=== PATIENT | female | born 1980 | race Caucasian/White ===

== ENCOUNTER → 2018-01-17 | Outpatient (CLI) | payer OTHER ==
[~2018-01-17] MED LIST: IBUPROFEN 800800 MG PO; MAXZIDE-25 MG1 EACH PO; NORCO 5-325 TA1 EACH PO
== END ==
LOC: M.ULTRA 12:56
DX: N83.202 Unspecified ovarian cyst, left side (principal); N83.201 Unspecified ovarian cyst, right side

== ENCOUNTER → 2018-06-03 | Outpatient (CLI) | payer OTHER ==
[2018-06-03 13:07] LABS: CREATININE 0.8 mg/dL (0.6-1.3); POTASSIUM 3.9 mmol/L (3.5-5.1)
--- NOTE | 2018-06-03 14:48 | 2DMMODE ---
[place] [address] 2 D/M-MODE ECHOCARDIOGRAM Name: SALVADOR CHAUDHARY Room: [facility]#: [id number] Admission: 06/03/18 Attend Phys: Emanuel Turner, Discharge: Date of : 82 Date of Service: 06/03/18 1447 Report #: [id number] THIS REPORT FOR: //name// APPROVED REPORT Study performed: 06/03/2018 13:06:28 EXAM: Comprehensive 2D, Doppler, and color-flow Echocardiogram Patient Location: Out-Patient Status: routine BSA: 1.83 HR: 74 bpm BP: 115/78 mmHg Other Information Study Quality: Good Indications Aortic Valve Disease Bicuspid Aortic Valve 2D Dimensions LVEF(%): 62.05 (>50%) IVSd: 8.23 (7-11mm) LVOT Diam: 20.58 (18-24mm) LVDd: 45.33 mm PWd: 8.35 (7-11mm) Ascending Ao: 29.27 (22-36mm) LVDs: 30.24 (25-40mm) Aortic Root: 23.53 mm Quintanilla's LVEF: 62.05 % Volumes Left Atrial Volume (Systole) LA ESV Index: 13.00 mL/m2 Aortic Valve AoV Peak Alberto.: 2.10 m/s AO Peak Gr.: 17.57 mmHg LVOT Max P.18 mmHg AO Mean Gr.: 11.31 mmHg LVOT Mean P.55 mmHg LVOT Max V: 0.89 m/s AO V2 VTI: 47.62 cm LVOT Mean V: 0.57 m/s ERASMO (VTI): 1.46 cm2 LVOT V1 VTI: 20.89 cm AI Chaves: 1.94 m/s2 AI PHT: 530.33 [place] [address] 2 D/M-MODE ECHOCARDIOGRAM Name: SALVADOR CHAUDHARY Room: [facility]#: [id number] Admission: 06/03/18 Attend Phys: Emanuel Turner, Discharge: Date of : 82 Date of Service: 06/03/18 1447 Report #: [id number] Mitral Valve E/A Ratio: 1.32 MV Decel. Time: 149.18 ms MV E Max Alberto.: 0.88 m/s MV PHT: 43.26 ms MVA (PHT): 5.09 cm2 TDI E/Lateral E': 5.50 E/Medial E': 8.00 Medial E' Alberto.: 0.11 m/s Lateral E' Alberto.: 0.16 m/s Pulmonary Valve PV Peak Alberto.: 0.81 m/s PV Peak Gr.: 2.64 mmHg Tricuspid Valve RAP Estimate: 5.00 mmHg TR Peak Gr.: 23.90 mmHg RVSP: 28.90 mmHg PA Pressure: 28.90 mmHg Left Ventricle The left ventricle is normal size. There is normal LV segmental wall motion. There is normal left ventricular wall thickness. Left ventricular systolic function is normal. The left ventricular ejection fraction is within the normal range. LVEF is 55-60%. The left ventricular diastolic function is normal. Right Ventricle The right ventricle is normal size. The right ventricular systolic function is normal. Atria The left atrium size is normal. The right atrium size is normal. Aortic Valve Aortic valve leaflets are mildly thickened. Moderate aortic regurgitation. There is no aortic valvular stenosis. Mitral Valve The mitral valve is normal in structure. There is no mitral valve regurgitation noted. No evidence of mitral valve stenosis. Tricuspid Valve The tricuspid valve is normal in structure. Mild [place] [address] 2 D/M-MODE ECHOCARDIOGRAM Name: SALVAODR CHAUDHARY Room: [facility]#: [id number] Admission: 06/03/18 Attend Phys: Emanuel Turner, Discharge: Date of : 82 Date of Service: 06/03/18 1447 Report #: [id number] Pulmonic Valve The pulmonary valve is normal in structure. There is no pulmonic valvular regurgitation. Great Vessels The aortic root is normal in size. IVC is normal in size and collapses with >50% inspiration Pericardium There is no pericardial effusion. <Conclusion> The left ventricle is normal size. There is normal left ventricular wall thickness. Left ventricular systolic function is normal. The left ventricular ejection fraction is within the normal range. LVEF is 55-60%. The left ventricular diastolic function is normal. The right ventricle is normal size. The left atrium size is normal. Aortic valve leaflets are mildly thickened. Moderate aortic regurgitation. There is no aortic valvular stenosis. The mitral valve is normal in structure. The tricuspid valve is normal in structure. IVC is normal in size and collapses with >50% inspiration There is no pericardial effusion. There is normal LV segmental wall motion. <ELECTRONICALLY SIGNED> By: Nathan Mccrary MD, FACC 06/03/18 1447 1447 1447 Nathan Mccrary MD, FACC /INF
== END ==
LOC: M.CRD 12:37
PROVIDERS: Internal Medicine Cardiovascular Disease
DX: I08.2 Rheumatic disorders of both aortic and tricuspid valves (principal); I50.31 Acute diastolic (congestive) heart failure

== ENCOUNTER 2018-06-22 08:44 | Emergency (ER) | payer OTHER ==
[~2018-06-22] VITALS: Ht 162.6 cm; Wt 77.1 kg
[2018-06-22] MEDS ORDERED: MAXZIDE-25 MG1 EACH PO (08:54)
[2018-06-22] MEDS ORDERED: NORCO 5-325 TA1 EACH PO (10:32)
[2018-06-22] MEDS ORDERED: IBUPROFEN 800800 MG PO (10:32)
[2018-06-22 10:43] VITALS: BP 95/63
== END 2018-06-22 10:44 | disposition home or self-care (01) ==
LOC: M.ERS 08:44
DX: S52.592A Other fractures of lower end of left radius, initial encounter for closed fracture (principal); S52.612A Displaced fracture of left ulna styloid process, initial encounter for closed fracture; W55.12XA Struck by horse, initial encounter; Y93.89 Activity, other specified; Y92.89 Other specified places as the place of occurrence of the external cause; Y99.8 Other external cause status

== ENCOUNTER → 2018-12-11 | Outpatient (CLI) | payer OTHER ==
--- NOTE | 2018-12-11 15:44 | EXE ---
[place] [address] STRESS ECHOCARDIOGRAM Name: SALVADOR CHAUDHARY Room: [facility]#: [id number] Admission: 12/11/18 Attend Phys: Emanuel Turner, Discharge: Date of : 82 Date of Service: 12/11/18 1543 Report #: [id number] THIS REPORT FOR: //name// APPROVED REPORT Study performed: 12/11/2018 11:03:09 Exam: Stress Echocardiogram Indication: Chest pain Patient Location: Out-Patient Stress Nurse: Fiona Hussein RN Supervising Physician: Nathan Mccrary MD Ht: 5 ft 5 in HR: 72 bpm BP: 98/66 mmHg Procedure The patient underwent an Exercise Stress Test using the Keon Protocol. Blood pressure, heart rate, and EKG were monitored. An Echocardiogram was performed by watch technician in four stages in quad fashion. At peak stress, four selected images were obtained and placed side by side with resting images for comparison. Stress Test Details Stress Test: Exercise stress testing was performed using a Keon protocol. HR Resting HR: 72 bpm Max Heart Rate (APMHR): 183 bpm Max HR Achieved: 176 bpm Target HR (85% APMHR): 155 bpm % of APMHR: 96 Recovery HR: 99 bpm HR response to stress: Normal HR response to stress BP Resting BP: 98/66 mmHg Max BP: 152/83 mmHg Recovery BP: 113/79 mmHg BP response to stress: Normal blood pressure response to stress. ECG Resting ECG: Normal EKG Stress ECG: No ischemic st-t changes Clinical Reason for Termination: [place] [address] STRESS ECHOCARDIOGRAM Name: SALVADOR CHAUDHARY Room: [facility]#: [id number] Admission: 12/11/18 Attend Phys: Emanuel Turner, Discharge: Date of : 82 Date of Service: 12/11/18 1543 Report #: [id number] Exercise duration: 9 min 35 sec Highest Stage Achieved: Stage 4: 4.2 mph at 16% grade. Exercise capacity: 11.11 METs Pre-Stress Echo The resting Echocardiogram showed normal left ventricular contractility with an estimated Ejection Fraction of about 55-60%. Normal wall motion in all segments on baseline images. Post-Stress Echo The stress Echocardiogram showed normal left ventricular contractility with an estimated Ejection Fraction of about >70%. Normal augmentation of wall motion in all segments on post stress images. Conclusion Clinical Response: Non-ischemic Exercise Capacity: Average Stress ECG Response: Non-ischemic Stress Echo Images: Non-ischemic Other Information Study Quality: Good <ELECTRONICALLY SIGNED> By: Nathan Mccrary MD, [facility] 12/11/18 1543 1543 154 Nathan Mccrary MD, FACC /INF
== END ==
LOC: M.CRD 10:41
DX: I20.8 Other forms of angina pectoris (principal)

== ENCOUNTER → 2020-12-15 | Outpatient (CLI) | payer OTHER ==
--- NOTE | 2020-12-15 16:39 | 2DMMODE ---
[place] [address] 2 D/M-MODE ECHOCARDIOGRAM Name: SALVADOR CHAUDHARY Room: [facility]#: [id number] Admission: 12/15/20 Attend Phys: Alfonzo Elkins, Discharge: Date of : 82 Date of Service: 12/15/20 1639 Report #: [id number] THIS REPORT FOR: cc: Isabelle Salcido MD, Tuongvan T. MD Holkins, John M. MD [facility] ~ APPROVED REPORT Study performed: 12/15/2020 13:55:36 EXAM: Comprehensive 2D, Doppler, and color-flow Echocardiogram Patient Location: Out-Patient BSA: 1.90 HR: 93 bpm BP: 120/70 mmHg Other Information Study Quality: Good Indications Bicuspid Aortic valve 2D Dimensions IVSd: 10.48 (7-11mm) LVOT Diam: 21.03 (18-24mm) LVDd: 44.62 mm PWd: 9.23 (7-11mm) Ascending Ao: 33.15 (22-36mm) LVDs: 23.59 (25-40mm) Aortic Root: 28.92 mm Volumes Left Atrial Volume (Systole) LA ESV Index: 15.50 mL/m2 Aortic Valve AoV Peak Alberto.: 2.26 m/s AO Peak Gr.: 20.45 mmHg LVOT Max P.25 mmHg AO Mean Gr.: 12.50 mmHg LVOT Mean P.57 mmHg LVOT Max V: 0.90 m/s AO V2 VTI: 45.69 cm LVOT Mean V: 0.58 m/s ERASMO (VTI): 1.46 cm2 LVOT V1 VTI: 19.28 cm AI Hale: 2.57 m/s2 AI PHT: 414.21 [place] [address] 2 D/M-MODE ECHOCARDIOGRAM Name: SALVADOR CHAUDHARY Room: [facility]#: [id number] Admission: 12/15/20 Attend Phys: Alfonzo Elkins, Discharge: Date of : 82 Date of Service: 12/15/20 1639 Report #: [id number] Mitral Valve E/A Ratio: 1.15 MV Decel. Time: 186.47 ms MV E Max Alberto.: 0.73 m/s MV PHT: 54.08 ms MVA (PHT): 4.07 cm2 TDI E/Lateral E': 4.56 E/Medial E': 8.11 Medial E' Alberto.: 0.09 m/s Lateral E' Alberto.: 0.16 m/s Pulmonary Valve PV Peak Alberto.: 0.89 m/s PV Peak Gr.: 3.14 mmHg Tricuspid Valve RAP Estimate: 5.00 mmHg TR Peak Gr.: 22.26 mmHg RVSP: 27.26 mmHg PA Pressure: 27.26 mmHg Left Ventricle The left ventricle is normal size. There is normal LV segmental wall motion. There is normal left ventricular wall thickness. Left ventricular systolic function is normal. The left ventricular ejection fraction is within the normal range. LVEF is 55-60%. The left ventricular diastolic function is normal. Right Ventricle The right ventricle is normal size. The right ventricular systolic function is normal. Atria The left atrium size is normal. The right atrium size is normal. Aortic Valve Aortic valve is possibly bicuspid. Mild aortic valve sclerosis. Mild to moderate aortic regurgitation. Mild aortic stenosis. Mitral Valve The mitral valve is normal in structure. There is no mitral valve regurgitation noted. No evidence of mitral valve stenosis. Tricuspid Valve The tricuspid valve is normal in structure. [place] [address] 2 D/M-MODE ECHOCARDIOGRAM Name: SALVADOR CHAUDHARY Room: [facility]#: [id number] Admission: 12/15/20 Attend Phys: Alfonzo Elkins, Discharge: Date of : 82 Date of Service: 12/15/20 1639 Report #: [id number] Pulmonic Valve The pulmonary valve is normal in structure. There is no pulmonic valvular regurgitation. Great Vessels The aortic root is normal in size. IVC is normal in size and collapses >50% with inspiration. Pericardium There is no pericardial effusion. <Conclusion> The left ventricle is normal size. There is normal left ventricular wall thickness. Left ventricular systolic function is normal. The left ventricular ejection fraction is within the normal range. LVEF is 55-60%. The left ventricular diastolic function is normal. The right ventricle is normal size. The left atrium size is normal. Aortic valve is possibly bicuspid. Mild aortic valve sclerosis. Mild to moderate aortic regurgitation. Mild aortic stenosis. The mitral valve is normal in structure. The tricuspid valve is normal in structure. IVC is normal in size and collapses >50% with inspiration. There is no pericardial effusion. There is normal LV segmental wall motion. <ELECTRONICALLY SIGNED> By: Nathan Mccrary MD, FACC 12/15/20 1639 38 38 Nathan Mccrary MD, FACC /INF
== END ==
LOC: M.CRD 12-13 14:00
PROVIDERS: ATTEND Internal Medicine Cardiovascular Disease
DX: I08.2 Rheumatic disorders of both aortic and tricuspid valves (principal); Q23.1 Congenital insufficiency of aortic valve

== ENCOUNTER → 2021-02-07 | Outpatient (CLI) | payer OTHER | LOC: M.CT 15:48 | PROVIDERS: ATTEND Internal Medicine Cardiovascular Disease | DX: I71.9 Aortic aneurysm of unspecified site, without rupture (principal) ==

== ENCOUNTER 2021-05-22 09:16 | Inpatient (IN) | payer OTHER ==
[~2021-05-22] VITALS: Ht 162.6 cm; Wt 87.5 kg
[2021-05-22 09:32] VITALS: BP 107/70
[2021-05-22] MEDS ORDERED: [UNRECOGNIZED DRUG - OTHER] (09:34)
[2021-05-22 10:38] LABS: ABSOLUTE BASOPHILS 0.1 thou/uL (0.0-0.2); ABSOLUTE MONOCYTES 0.3 thou/uL (0.0-1.2); ABSOLUTE NEUTROPHILS 6.1 thou/uL (1.6-8.1); EOSINOPHILS 0.1 %; HEMATOCRIT 40.9 % (37.0-47.0); HEMOGLOBIN 13.7 gm/dL (12.0-15.0); LYMPHOCYTES 13.5 %; MCH 29.2 pg (26.0-34.0); MCHC 33.4 g/dL (28.0-37.0); MCV 87.4 fL (80.0-100.0); MONOCYTES 4.3 %; MPV 7.1 fl. (7.2-11.1); NUCLEATED RBCS 0 /100WBC; PLATELET COUNT* 301 thou/uL (150-400); POLYS 81.1 %; RBC 4.68 mil/uL (4.20-5.00); RDW-CV 13.5 % (10.5-14.5); WBC 7.6 thou/uL (4.0-11.0)
--- NOTE | 2021-05-22 10:52 | EKG ---
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: [facility] : 1980 Requested By: Mikel Truong Order Number: [id number] MD: Danilo Casillas Measurements Intervals [place] Rate: 100 P: 61 AL: 136 QRS: 39 QRSD: 84 T: 83 QT: 332 QTc: 429 Interpretive Statements Sinus tachycardia Borderline repolarization abnormality No previous ECG available for comparison Electronically Signed On 05-22-2021 10:52:12 CDT by Danilo Casillas [email or web address] <ELECTRONICALLY SIGNED> By: Pedro Casillas MD, [facility] 05/22/21 1052 1023 1023 Pedro Casillas MD, FACC /EPI
[2021-05-22 10:58] LABS: CALCIUM 7.8 mg/dL (8.5-10.1); CREATININE 0.8 mg/dL (0.6-1.3); POTASSIUM 3.7 mmol/L (3.5-5.1)
[2021-05-22 11:03] LABS: ALBUMIN 2.4 g/dL (3.4-5.0); TOTAL BILIRUBIN 0.3 mg/dL (<0.1-1.0); TOTAL PROTEIN 6.3 g/dL (6.4-8.2)
[2021-05-22] MEDS ORDERED: DECADRON6 MG PO (12:30)
[2021-05-22] MEDS ORDERED: DORYX MPC120 MG PO (12:30)
[2021-05-22 14:21] LABS: ALBUMIN 2.3 g/dL (3.4-5.0); DIRECT BILIRUBIN 0.1 mg/dL (<0.1-0.3); TOTAL BILIRUBIN 0.2 mg/dL (<0.1-1.0); TOTAL PROTEIN 6.1 g/dL (6.4-8.2)
[2021-05-22 15:09] VITALS: BP 99/68
[2021-05-22 17:38] VITALS: BP 112/70
[2021-05-22 17:52] VITALS: BP 109/68
[2021-05-22 20:00] VITALS: BP 115/78
[2021-05-23 02:41] VITALS: BP 96/62
--- NOTE | 2021-05-23 03:59 | NUR ---
ASSUMED CARE OF PT AFTER REPORT AT 1930. PT A&OX4. VSS. PHYSICAL ASSESSMENT COMPLETED AND CHARTED. PT ON O2 AT 2LNC. PT TRACING SR ON TELE. PT UPADLIB TO BSC. PT COMPLAINED OF HEADACHE-MED GIVEN PER MAR. CALL LIGHT WITHIN REACH.
[2021-05-23 05:00] VITALS: BP 105/63
[2021-05-23 09:00] VITALS: BP 105/68
[2021-05-23] MEDS ORDERED: VENTOLIN HFA 1818 GM INH (11:50)
[2021-05-23] MEDS ORDERED: TESSALON PERLE100 MG PO (11:51)
[2021-05-23] MEDS ORDERED: PREDNISONE 10 M10 MG PO (11:53)
[2021-05-23] MEDS ORDERED: LEVOFLOXACIN500 MG PO (11:54)
--- NOTE | 2021-05-23 15:03 | NUR ---
Covid positive. Pt is A&O. Resides at home with and kids. Normally active and independe
[2021-05-23 20:00] VITALS: BP 110/73
[2021-05-24] VITALS: BP 103/61
[2021-05-24 04:00] VITALS: BP 107/63
--- NOTE | 2021-05-24 04:38 | NUR ---
ASSUMED CARE OF PT AFTER REPORT AT 1930. PT A&OX4. VSS. PHYSICAL ASSESSMENT COMPLETED AND CHARTED. PT ON O2 AT 2LNC. PT TRACING SR ON TELE. PT UPADLIB TO BSC. PT DENIES ANY PAIN. CALL LIGHT WITHIN REACH.
[2021-05-24 08:00] VITALS: BP 97/55
--- NOTE | 2021-05-24 09:12 | NUR ---
Pt to discharged today. Tank dispensed by Keny, TEJA took tank to unit for nurse to deliver into Pt's room. No further needs.
[2021-05-24 10:16] LABS: CALCIUM 8.3 mg/dL (8.5-10.1); CREATININE 0.7 mg/dL (0.6-1.3); POTASSIUM 3.6 mmol/L (3.5-5.1)
[2021-05-24 12:00] VITALS: BP 107/71
[2021-05-24 14:52] VITALS: BP 107/71
--- NOTE | 2021-05-24 16:34 | NUR ---
patient discharge to home accompanied by family . All discharge medication completed , left with portable oxygen tanks.No issue voiced at this time.
== END 2021-05-24 15:30 | disposition home or self-care (01) | DRG 177 ==
LOC: M.ERS 09:16 → M.ORTHSURG 11:46 → M.TBA-ER 11:46 → M.ORTHSURG 17:46
PROVIDERS: Emergency Medicine Emergency Medical Services; ADMIT Internal Medicine; ATTEND Internal Medicine
PROC: XW033E5 Introduction of Remdesivir Anti-infective into Peripheral Vein, Percutaneous Approach, New Technology Group 5 (ICD-10-PCS; principal; 2021-05-22)
PROC: 5A0935A Assistance with Respiratory Ventilation, Less than 24 Consecutive Hours, High Flow/Velocity Cannula (ICD-10-PCS; 2021-05-24)
DX: U07.1 COVID-19 (principal); J96.01 Acute respiratory failure with hypoxia; J12.82 Pneumonia due to coronavirus disease 2019; Z79.899 Other long term (current) drug therapy; Z87.891 Personal history of nicotine dependence; Z72.89 Other problems related to lifestyle

== ENCOUNTER 2021-10-29 09:30 | Emergency (ER) | payer OTHER ==
[~2021-10-29] VITALS: Ht 162.6 cm; Wt 77.1 kg
[~2021-10-29 09:30] MED LIST changes: +DECADRON6 MG PO; +DORYX MPC120 MG PO; +LEVOFLOXACIN500 MG PO; +PREDNISONE 10 M10 MG PO; +TESSALON PERLE100 MG PO; +VENTOLIN HFA 1818 GM INH; +[UNRECOGNIZED DRUG - OTHER]
[2021-10-29 09:56] LABS: ABSOLUTE BASOPHILS 0.1 thou/uL (0.0-0.2); ABSOLUTE EOSINOPHILS 0.1 thou/uL (0.0-0.7); ABSOLUTE LYMPHOCYTES 1.6 thou/uL (0.8-5.3); ABSOLUTE MONOCYTES 0.6 thou/uL (0.0-1.2); ABSOLUTE NEUTROPHILS 4.8 thou/uL (1.6-8.1); BASOPHILS 1.2 %; EOSINOPHILS 0.7 %; HEMATOCRIT 39.6 % (37.0-47.0); HEMOGLOBIN 13.5 gm/dL (12.0-15.0); LYMPHOCYTES 22.4 %; MCH 29.8 pg (26.0-34.0); MCHC 34.1 g/dL (28.0-37.0); MCV 87.3 fL (80.0-100.0); MONOCYTES 8.3 %; MPV 6.6 fl. (7.2-11.1); NUCLEATED RBCS 0 /100WBC; PLATELET COUNT* 394 thou/uL (150-400); POLYS 67.4 %; RBC 4.54 mil/uL (4.20-5.00); RDW-CV 13.6 % (10.5-14.5); WBC 7.1 thou/uL (4.0-11.0)
[2021-10-29 09:58] LABS: URINE BILIRUBIN NEGATIVE (Negative); URINE BLOOD 3+ (Negative); URINE CLARITY SL CLOUDY; URINE COLOR YELLOW; URINE GLUCOSE-RANDOM NEGATIVE (Negative); URINE KETONES NEGATIVE (Negative); URINE LEUKOCYTES-REFLEX NEGATIVE (Negative); URINE NITRITE-REFLEX NEGATIVE (Negative); URINE PROTEIN TRACE (Negative); URINE UROBILINOGEN 0.2 E.U./dl (0.2-1.0)
[2021-10-29 10:05] LABS: BACTERIA-REFLEX None Seen /HPF (None Seen); CASTS None Seen /LPF (None Seen); CRYSTALS None Seen /LPF (None Seen); SQUAMOUS 0-3 Few /LPF (0-3); URINE RBC >20 Many /HPF (0-2); URINE WBC-REFLEX None Seen /HPF (0-5)
[2021-10-29 10:08] LABS: CALCIUM 8.3 mg/dL (8.5-10.1); CREATININE 0.9 mg/dL (0.6-1.3)
[2021-10-29 10:12] LABS: ALBUMIN 3.6 g/dL (3.4-5.0); TOTAL BILIRUBIN 0.6 mg/dL (<0.1-1.0); TOTAL PROTEIN 7.2 g/dL (6.4-8.2)
--- NOTE | 2021-10-29 10:13 | EKG ---
[place] [address] ELECTROCARDIOGRAM REPORT Name: SALVADOR CHAUDHARY Room: [facility]#: [id number] Admission: 10/29/21 Attend Phys: Discharge: Date of : 82 Date of Service: 10/29/2157 Report #: [id number] THIS REPORT FOR: //name// [facility] ED Test Date: 2021-10-29 Test Time: 09:57:29 Pat Name: SALVADOR CHAUDHARY Department: Room: Gender: Tv Host: : 1980 Requested By: Adolfo Martinez Order Number: [id number] MD: Murphy Nascimento Measurements Intervals [place] Rate: 84 P: 54 AL: 132 QRS: 72 QRSD: 81 T: 60 QT: 394 QTc: 466 Interpretive Statements Sinus rhythm Compared to ECG 05/22/2021 10:23:59 Sinus tachycardia no longer present Electronically Signed On 10-29-2021 10:13:01 EXECUTIVE PILOT by Murphy Nascimento [email or web address] <ELECTRONICALLY SIGNED> By: Murphy Nascimento MD, [facility] 10/29/21 1013 6 Murphy Nascimento MD, FACC /EPI
[2021-10-29] MEDS ORDERED: CIPROFLOXACIN500 M1 PO (11:15)
[2021-10-29] MEDS ORDERED: ZOFRAN ODT4 MG DISSOLVE (11:15)
[2021-10-29] MEDS ORDERED: FLOMAX0.4 MG PO (11:15)
[2021-10-29] MEDS ORDERED: PERCOCET PO (11:15)
[2021-10-29 12:00] VITALS: BP 118/64
== END 2021-10-29 12:00 | disposition home or self-care (01) ==
LOC: M.ERS 09:30
PROVIDERS: Family Medicine
DX: N13.2 Hydronephrosis with renal and ureteral calculous obstruction (principal); Z79.899 Other long term (current) drug therapy; Z90.49 Acquired absence of other specified parts of digestive tract

== ENCOUNTER → 2021-11-09 | Outpatient (CLI) | payer OTHER ==
[~2021-11-09] MED LIST changes: +BACTRIM DS TAB1 EAC1 PO; +CIPROFLOXACIN500 M1 PO; +FLOMAX0.4 MG PO; +NORCO5 PO; +PERCOCET PO; +PYRIDIUM200 MG PO; +ZOFRAN ODT4 MG DISSOLVE
== END ==
LOC: M.LAB 14:04
PROVIDERS: ATTEND Urology
DX: Z01.812 Encounter for preprocedural laboratory examination (principal); Z20.822 Contact with and (suspected) exposure to COVID-19

== ENCOUNTER → 2021-11-10 | Day surgery (SDC) | payer OTHER ==
--- NOTE | ~2021-11-10 | OP ---
[address] [address] OPERATIVE REPORT Name: SALVADOR CHAUDHARY Room: [facility]#: [id number] Admission: 11/10/21 Attend Phys: Salvador Jj MD Discharge: Date of : 82 Report #: [id number] THIS REPORT FOR: cc: Lisa Salcedo Stefany RNP Haggard,Salvador Solis MD ~ DATE OF SURGERY: 11/10/2021 PREOPERATIVE DIAGNOSIS: A 5 mm x 4 mm x 8 mm mid left ureteral stone. POSTOPERATIVE DIAGNOSIS: A 5 mm x 4 mm x 8 mm mid left ureteral stone. PROCEDURES: Cystoscopy, left retrograde pyelogram, left ureteroscopy with holmium laser lithotripsy, ureteroscopic stone extraction, placement of left ureteral stent. STAFF SURGEON: Salvador Jj MD WORLD HISTORY TEACHER: None. ANESTHESIA: General. ESTIMATED BLOOD LOSS: None. COMPLICATIONS: None. SPECIMENS: Left ureteral stone fragment. DRAINS: A 28 cm x 4.8-[place] left ureteral stent. INDICATIONS: The patient is a pleasant 41-year-old white female who presented with acute onset left flank pain on 10/29/2021. She had a CT scan that confirmed a 5 mm x 4 mm x 8 mm mid left ureteral stone about L4-5 level. She was counseled regarding treatment options and elected for definitive cystoscopy, left retrograde pyelogram, left ureteroscopy, possible holmium laser lithotripsy, possible placement of left ureteral stent. After risks and benefits of the procedure were explained, informed consent was obtained. DESCRIPTION OF PROCEDURE: The patient was taken to the operating room, comfortably placed in the dorsal lithotomy position under adequate general anesthesia. She was sterilely prepped and draped in sterile fashion exposing only the genitalia. She received her antibiotic therapy as prescribed with Ancef. Appropriate timeout was carried out and all were in agreement. A 22-[place] cystoscope with the obturator in place was blindly inserted into the urethra. The obturator was removed, draining clear miguel colored urine. Bladder was systematically viewed. Both ureteral [place]ific[place] [id number] OPERATIVE REPORT Name: SALVADOR CHAUDHARY Room: [facility]#: [id number] Admission: 11/10/21 Attend Phys: Salvador Jj MD Discharge: Date of : 82 Report #: [id number] bladder calculi seen or foreign body observed. Mucosa was smooth. An 8-[place] cone-tipped catheter was placed in the left ureteral orifice and a retrograde pyelogram was performed showing normal caliber ureter all the way at the L5 level and then just came up an abrupt stop with further pushing of the contrast, could get some more contrast leaking above it, indicating high-grade obstruction at this level, could kind of see a filling defect corresponding to stone seen on CT scan, attempted to place a guidewire up the left ureter, but just met resistance at the level of the filling defect consistent with an impacted stone. A 4.5-[place] tapered to a 6.5-[place] Franco semirigid scope was placed through the urethra up the left ureter to the level of the stone and under direct vision, was able to then guide the wire off to the side of the stone to get it up to the level of kidney. The guidewire was left in place. The ureteroscope was then removed and then reinserted through the urethra beside the guidewire up the left ureter to the level of the stone, 272 micron holmium laser fiber set at 6.4 villa fragmented the stone into multiple fragments until it was freely mobile. One of the fragments was grasped with a 1.9-[place] nitinol basket and removed intact. It was about 2 mm in size. The rest of it was pulverized. Repeat ureteroscopy showed no sign of damage to the ureter. No significant fragments remained. The semirigid scope was removed and a 28 cm x 4.8-[place] ureteral stent was put in place and positioned with good coil in the left renal pelvis, good coil in the bladder. The bladder was drained. Cystoscope was then removed. She tolerated the procedure extremely well. She was extubated in the operating room, [facility] with assistance and went to recovery in stable condition. We will see her back in our office next week for cystoscopy, left stent removal and in 6 weeks with renal ultrasound and KUB. By: [id number] Jj MD /nt
[2021-11-10 08:00] LABS: HEMATOCRIT 39.7 % (37.0-47.0); HEMOGLOBIN 13.5 gm/dL (12.0-15.0); MCH 29.4 pg (26.0-34.0); MCV 86.5 fL (80.0-100.0); MPV 6.8 fl. (7.2-11.1); RBC 4.59 mil/uL (4.20-5.00); RDW-CV 13.6 % (10.5-14.5); WBC 7.2 thou/uL (4.0-11.0)
--- NOTE | 2021-11-11 14:07 | PATH ---
[address] [address] PATHOLOGY RPT PROCEDURE Name: MILY CHAUDHARY Room: [facility].#: [id number] Admission: 11/10/21 Date of : 82 Discharge: Report #: [id number] Path Case #: [id number] [facility] Accession Number: [id number] . 01 Material submitted: . ureter - LEFT URETERAL STONE. Modifiers: left . 01 Clinical history: . CYSTO W/ RETROGRADES, STONE MANIPULATE, STENT URETERAL STONE . 02 Diagnosis: Left ureteral stone: - Consistent with calculus. - The specimen is sent out for further processing. Report pending outside analysis with results to follow in an addendum. MBR 11/10/2021 1653 Local . 02 Electronically signed: . Yoana Valdez MD, Pathologist NPI- [id number] . 01 Gross description: . The specimen is received fresh, labeled "Brown, Mily, left ureteral stone". Received is a single yellow-flores calculus measuring 0.4 cm in maximum dimensions. The specimen is forwarded to sendouts for further processing. ([facility]; 11/10/2021) NRI/NRI 11/10/2021 1653 Local . 02 Pathologist provided ICD-10: N20.1 . 02 CPT . 446996 Specimen Comment: A courtesy copy of this report has been sent to [phone], [phone] Specimen Comment: [phone] Specimen Comment: Report sent to / DR FOFANA Performed at: [address], [place], [place] [id number] MD Pratik Barrientos MD Phone: [phone] Performed at: [address] [id number] MD Yoana Valdez MD Phone: [phone]
== END | disposition home or self-care (01) ==
LOC: M.SUR 07:20
PROVIDERS: ATTEND Urology
DX: N20.1 Calculus of ureter (principal); R10.9 Unspecified abdominal pain; Z98.890 Other specified postprocedural states; Z79.899 Other long term (current) drug therapy; Z79.891 Long term (current) use of opiate analgesic